=== PATIENT | female | born 1970 | race Caucasian/White ===

== ENCOUNTER 2016-06-20 14:41 | Emergency (ER) | payer MEDICARE, BC ==
--- NOTE | 2016-07-17 09:32 | ER ---
ADMIT: 06/20/2016 RM/LOC: ER [facility] MR#: [id number] [address] [address] JAXON RUEDA [address] [place] [address] Emergency Room Report SEX: F AGE: 45 : 1970 DATE: 06/20/2016 ADDENDUM: CHIEF COMPLAINT: Migraine. HISTORY OF PRESENT ILLNESS: This is a 45-year-old, who has a history of migraines. She took Relpax prior to arrival, but she is not any better. COURSE IN THE EMERGENCY ROOM: She was given Toradol, Nubain, and Phenergan. She felt significantly better. Told her to do fluids, rest, and follow up as needed. CLINICAL IMPRESSION: Migraine headache. ERIN Fleming / Sukhdev Anna MD / arinl JOB #: [id number] CC: Sukhdev Anna MD, Attending Physician Tristen Weinberg MD, Family Physician
== END 2016-06-20 19:15 | disposition home or self-care (01) ==
LOC: ER 14:41
DX: G43.909 Migraine, unspecified, not intractable, without status migrainosus (principal); E03.9 Hypothyroidism, unspecified

== ENCOUNTER 2016-06-23 15:39 | Emergency (ER) | payer MEDICARE, BC ==
--- NOTE | 2016-06-24 13:07 | ER ---
ADMIT: 06/23/2016 RM/LOC: ER [facility] MR#: [id number] [address] [address] JAXON RUEDA [address] [place] [address] Emergency Room Report SEX: F AGE: 45 : 1970 DATE: 06/23/2016 Patient is a 45-year-old female with past medical history of migraine headaches, IBS, arthritis, fibromyalgia, and hypothyroidism came to the ER with chief complaint of 2 weeks of headaches intermittently on and off. The patient states the headache is in the frontal, it is very similar to previous headaches she has had and she states that the headache is painful and also she complains of photophobia. She denies any fever, but had nausea without vomiting. The patient also denies any neck pain or neck stiffness. PHYSICAL EXAMINATION: The patient is afebrile in the ER, pupils are 3 mm, reactive to light bilaterally, jolt test negative. Neck is soft and there is no tenderness over the temporal area and extraocular movements are normal. Motor grossly normal, sensory grossly normal except for decreased sensation on the anterior medial part of the right leg which per patient is chronic after she had meningitis years ago. The rest of the neural exam was normal. Chest is clear bilaterally, normal heart sounds. Abdomen is soft. The rest of the examination is normal. The patient received Phenergan IM, Toradol IM, Nubain IM, as it has always been this same cocktail that worked for her. The patient was rechecked, and the symptoms were improving significantly. The patient is stable to be discharged to home to be followed up by the primary doctor as needed. Venkat Saenz MD/ hui JOB #: [id number] CC: Venkat Saenz MD, Attending Physician UNKNOWN, Family Physician
== END 2016-06-23 16:25 | disposition home or self-care (01) ==
LOC: ER 15:39
DX: R51 Headache (principal); G89.29 Other chronic pain; Z79.899 Other long term (current) drug therapy

== ENCOUNTER 2016-06-24 11:56 | Emergency (ER) | payer MEDICARE, BC ==
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
== END 2016-06-24 13:04 | disposition home or self-care (01) ==
LOC: ER 11:56
DX: G43.909 Migraine, unspecified, not intractable, without status migrainosus (principal); Z90.49 Acquired absence of other specified parts of digestive tract; Z88.1 Allergy status to other antibiotic agents

== ENCOUNTER 2016-07-04 18:06 | Emergency (ER) | payer MEDICARE, BC ==
--- NOTE | 2016-07-06 04:19 | ER ---
ADMIT: 07/04/2016 RM/LOC: ER [facility] MR#: [id number] [address] [address] JAXON RUEDA Clay [address] [place] [address] Emergency Room Report SEX: F AGE: 45 : 1970 DATE: 07/04/2016 CHIEF COMPLAINT: Headache. HISTORY OF PRESENT ILLNESS: This is a 45-year-old female, who presents to the ER with complaints of headache off and on for the past 2 days. The patient has been seen multiple times in the last 10 days on the and for similar complaints. She states this headache is gradual onset, still present. It feels similar to her previous headaches. Denies this being the worst headache of her life. No fever, chills, or problems with vision. Admits to some sensitivity to light and nausea. No neck pain, stiffness, tingling, or numbness in the extremities. States that she has had a significant history of migraine headaches. She has been worked up at the [facility]. She has seen multiple headache specialist and neurologist. States she is due to see her primary care provider that she is going to switch to amitriptyline soon for her headaches. However, she is very vague in her description of her current migraine management. States she has some Relpax at home, which does not help. COURSE IN THE EMERGENCY ROOM: The patient was seen and examined. She is afebrile and nontoxic. No neck tenderness or stiffness or meningismus. Eyes, pupils are equal and reactive. Extraocular muscles intact. Neck is soft and supple. No respiratory distress. Extremities are nontender. No pedal edema. She is alert and oriented x4. Normal speech or cognitive abnormalities. Cranial nerves are normal as tested. Motor and sensation are equal in the upper lower extremities compared bilaterally. She was given Phenergan 25 mg IM, Nubain 10 mg IM, Toradol 15 mg IM and discharged back home. IMPRESSION: Chronic migraine headaches, poor control. DISPOSITION: The patient was to return home and rest. Increase her fluids. Certainly return with any worsening signs or symptoms. I did stress the importance of following up with her primary care provider as she is currently displaying very poor control of her migraine headaches, and I think there is more to be done to provide her better control than coming to the ER over several days for treatment of her headache symptoms. Questions sought and answered to the best of my ability and to the patient's satisfaction. Discharged in stable condition. ERIN Araujo / Kendrick Vasques MD / hui JOB #: [id number] CC: Sukhdev Anna MD, Attending Physician Ayan Leyva MD, Family Physician
== END 2016-07-04 19:43 | disposition home or self-care (01) ==
LOC: ER 18:06
DX: G43.909 Migraine, unspecified, not intractable, without status migrainosus (principal); D64.9 Anemia, unspecified; Z88.1 Allergy status to other antibiotic agents

== ENCOUNTER 2016-07-07 12:18 | Emergency (ER) | payer MEDICARE, BC ==
--- NOTE | 2016-07-09 14:43 | NUR ---
Pt triggered as a high ED user. Pt has a PCP, Deonna Astudillo at [facility]. Pt states she is able to afford her medications. Pt denies any needs or concerns at this time.
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
== END 2016-07-07 14:40 | disposition home or self-care (01) ==
LOC: ER 12:18
DX: G43.709 Chronic migraine without aura, not intractable, without status migrainosus (principal); M19.90 Unspecified osteoarthritis, unspecified site; Z90.49 Acquired absence of other specified parts of digestive tract; Z90.710 Acquired absence of both cervix and uterus; Z88.1 Allergy status to other antibiotic agents; Z88.8 Allergy status to other drugs, medicaments and biological substances; Z79.899 Other long term (current) drug therapy

== ENCOUNTER 2016-07-23 15:30 | Emergency (ER) | payer MEDICARE, BC ==
--- NOTE | 2016-08-22 18:55 | ER ---
ADMIT: 07/23/2016 RM/LOC: ER [facility] MR#: [id number] [address] [address] JAXON RUEDA [address] [place] [address] Emergency Room Report SEX: F AGE: 45 : 1970 DATE: 07/23/2016 ADDENDUM: This patient comes to the ER because she has had a headache for the last 2 days. It is a similar type headache for her on her forehead. She has been seen in the ER frequently for this type of headache. She has a normal neurological exam. She was given Toradol IM, Ativan 2 mg IM, and Phenergan 50 mg IM. She should go home, rest in a quiet dark place, push fluids. Follow up with her primary as needed. Please see my T-sheet. ERIN Harris / Bong Livingston MD / hui JOB #: [id number] CC: Bong Livingston MD, Attending Physician Jose De Jesus Brannon MD, Family Physician
== END 2016-07-23 16:35 | disposition home or self-care (01) ==
LOC: ER 15:30
DX: R51 Headache (principal); F17.210 Nicotine dependence, cigarettes, uncomplicated; Z90.49 Acquired absence of other specified parts of digestive tract; Z90.710 Acquired absence of both cervix and uterus; Z88.1 Allergy status to other antibiotic agents; Z88.0 Allergy status to penicillin; Z79.899 Other long term (current) drug therapy